=== PATIENT | male | born 1965 | race Caucasian/White ===

== ENCOUNTER 2025-05-28 08:45 | Day surgery (SDC) | payer OTHER ==
[~2025-05-28] VITALS: Ht 167.6 cm; Wt 105.5 kg
[~2025-05-28 08:45] MED LIST: RINGERS SOLUTION,LACTATED 1,000 ML IV ONE
[2025-05-28] MEDS ORDERED: METOCLOPRAMIDE HCL 5 MG/ML 2 ML VIAL IVP ONE (08:46)
[2025-05-28] MEDS ORDERED: KETOROLAC TROMETHAMINE 60 MG/2 ML VIAL IM ONE (08:46)
[2025-05-28] MEDS ORDERED: SUGAMMADEX SODIUM 200 MG/2 ML VIAL IVP ONE (08:46)
[2025-05-28] MEDS ORDERED: MIDAZOLAM HCL 2 MG/2 ML VIAL IVP ONE (08:46)
[2025-05-28] MEDS ORDERED: LIDOCAINE/PF 2% 5 ML VIAL IM ONE (08:46)
[2025-05-28] MEDS ORDERED: ROCURONIUM BROMIDE 10 MG/ML 5 ML VIAL IVP ONE (08:46)
[2025-05-28] MEDS ORDERED: PROPOFOL 1% 20 ML VIAL IVP ONE (08:46)
[2025-05-28] MEDS ORDERED: ONDANSETRON HCL 4 MG/2 ML VIAL IVP ONE (08:46)
[2025-05-28] MEDS ORDERED: ALBUTEROL SULFATE HFA 90 MCG/PUFF 8 GM INHALER IH ONE (08:46)
[2025-05-28] MEDS ORDERED: DEXAMETHASONE SOD PHOS 4 MG/ML VIAL IVP ONE (08:46)
[2025-05-28] MEDS ORDERED: FentaNYL CITRATE PF 100 MCG/2 ML VIAL IVP ONE (08:46)
[2025-05-28] MEDS ORDERED: FLUT1BLS18 IH (09:02)
[2025-05-28] MEDS: RINGERS SOLUTION,LACTATED 1,000 ML IV ONE (10:07)
[2025-05-28] MEDS: ETHYL ALCOHOL 62% ANTISEPTIC NASAL SANITIZER 0.6 ML AMPUL NASAL ONE (10:08)
[2025-05-28] MEDS: CHLORHEXIDINE GLUCONATE 2% TOWELETTE [2'S/6'S] TP ONE (10:08)
[2025-05-28] MEDS: BUPIVACAINE HCL/PF 0.25% 30 ML VIAL ONE (12:06)
[2025-05-28] MEDS: BUPIVACAINE LIPOSOME/PF 1.3%-13.3MG/ML SUSP 20 ML VIAL INJ ONE (12:07)
[2025-05-28] MEDS ORDERED: RINGERS SOLUTION,LACTATED 1,000 ML IV ONE (12:11)
[2025-05-28] MEDS ORDERED: OxyCODONE HCL/ACETAMINOPHEN 5-325 MG TABLET ONE (13:17)
[2025-05-28] MEDS: OxyCODONE HCL/ACETAMINOPHEN 5-325 MG TABLET PO ONE (13:20)
== END 2025-05-28 13:55 | disposition home or self-care (01) ==
LOC: SURGERY 08:45
PROVIDERS: ATTEND Specialist
DX: S83.281A Other tear of lateral meniscus, current injury, right knee, initial encounter (principal); S83.241A Other tear of medial meniscus, current injury, right knee, initial encounter; M22.41 Chondromalacia patellae, right knee; M65.961 Unspecified synovitis and tenosynovitis, right lower leg; M25.561 Pain in right knee; J44.9 Chronic obstructive pulmonary disease, unspecified; J40 Bronchitis, not specified as acute or chronic; X58.XXXA Exposure to other specified factors, initial encounter; Y93.89 Activity, other specified; Y92.89 Other specified places as the place of occurrence of the external cause; Y99.8 Other external cause status; Z86.16 Personal history of COVID-19
CPT/HCPCS: 29880; J0666; J1885; J3490 ×4; J2704; J0690; J1100; J3010; J2765; J2250; J2405; J7120; J3535